=== PATIENT | female | born 1945 | race Caucasian/White ===

== ENCOUNTER 2017-02-18 19:33 | Emergency (ER) | payer MEDICARE ==
[~2017-02-18] VITALS: Ht 162.6 cm; Wt 59.6 kg
[2017-02-18 19:40] VITALS: BP 148/66; PULSE 72; RESP 18; TEMP 98.1; O2SAT 100
--- NOTE | 2017-02-18 20:08 | PD ---
HPI Chief Complaint: Fall Time Seen by Provider: 19:57 Travel History International Travel<30 days: No Contact w/Intl Traveler<30days: No Traveled to known affect area: No History of Present Illness HPI 71-year-old female with a mechanical fall, landing on her left shoulder and elbow that occurred about 1500 today. States that she meant to step up on a curb, lost her footing, and fell directly on her left shoulder and elbow. She has trouble with full range of motion of her shoulder and elbow because of pain. States that she hit her head on the concrete and has an abrasion on the right forehead. Denies loss of consciousness, dizziness, headache, neck pain, back pain or pain anywhere else. Says that the pain radiates up her forearm with movement. Her pain is moderate and increases with movement and decreases with rest. She is not taking any medication for this today. PFSH Past Medical History Cancer: Yes (breast) Diminished Hearing: No ?: Not Menopausal: Yes Past Surgical History Appendectomy: Yes Other Surgery: Yes (left breast lumpectomy) Family History Family Breast Cancer: Yes (personal breast CA) Social History Alcohol Use: Yes (occasional) Tobacco Use: No Substance Use: No Allergies-Medications (Allergen,Severity, Reaction): Coded Allergies: epinephrine (Verified Allergy, Severe, 02/18/17) Reported Meds & Prescriptions Reported Meds & Active Scripts Active Ibuprofen 600 Mg Tab 600 Mg PO Q8HR PRN 7 Days Review of Systems Except as stated in HPI: all other systems reviewed are Neg Physical Exam Narrative GENERAL: Well-developed well-nourished SKIN: Focused skin assessment warm/dry. HEAD: Normocephalic. Superficial abrasion to forehead without tenderness. EYES: Pupils equal and round. No scleral icterus. No injection or drainage. EOMI ENT: No nasal bleeding or discharge. Mucous membranes pink and moist. NECK: Trachea midline. No JVD. No tenderness to palpation CARDIOVASCULAR: Regular rate and rhythm. No murmur appreciated. RESPIRATORY: No accessory muscle use. Clear to auscultation. Breath sounds equal bilaterally. GASTROINTESTINAL: Abdomen soft, non-tender, nondistended. Hepatic and splenic margins not palpable. MUSCULOSKELETAL: No obvious deformities. No clubbing. No cyanosis. No edema. Lower forearm, wrist, hands, fingers nontender to palpation full range of motion. Skin intact. Left shoulder- limited range of motion secondary to pain, no deformities, crepitus or tenting of the skin. Left elbow- tenderness just distal to the elbow joint, no deformities, crepitus or tenting of the skin BACK: No CVA tenderness. No rash. No point tenderness on palpation of the spine. NEUROLOGICAL: Awake and alert. No obvious cranial nerve deficits. Motor grossly within normal limits. Normal speech. PSYCHIATRIC: Appropriate mood and affect; insight and judgment normal. Data Data Last Documented VS Vital Signs Date Time Temp Pulse Resp B/P (MAP) Pulse Ox O2 Delivery O2 Flow Rate FiO2 02/18/17 19:40 98.1 72 18 148/66 (93) 100 Orders Orders Shoulder, Complete (>2vws) (02/18/17 ) Elbow, Complete (4 Vws) (02/18/17 ) Ibuprofen (Motrin) (02/18/17 20:30) Splint Or Brace Apply/Monitor (02/18/17 21:01) Ed Discharge Order (02/18/17 21:01) [facility] Medical Decision Making Medical Screen Exam Complete: Yes Emergency Medical Condition: Yes Differential Diagnosis Left Elbow strain versus sprain versus fracture versus contusion Left Shoulder contusion versus sprain versus strain versus fracture Narrative Course 71-year-old female with a mechanical fall, landing on her left shoulder and elbow that occurred about 1500 today. States that she meant to step up on a curb, lost her footing, and fell directly on her left shoulder and elbow. She has trouble with full range of motion of her shoulder and elbow because of pain. States that she hit her head on the concrete and has an abrasion on the right forehead. Denies loss of consciousness, dizziness, headache, neck pain, back pain or pain anywhere else. Says that the pain radiates up her forearm with movement. Her pain is moderate and increases with movement and decreases with rest. She is not taking any medication for this today. Physical Exam demonstrates tenderness just distal to the elbow neurovascular intact, without crepitus or deformities. Shoulder nontender to palpation but difficulty with range of motion. No wrist pain, has full range of motion of wrist and fingers. Imaging study shoulder without acute process. Elbow: nondisplaced radial head fracture. Patient administered Motrin 600 mg with good pain relief in the ED. Sugar tong splint. Advised to return to the emergency Department if pain increases. Patient to follow-up with orthopedics within 3-5 days, primary care physician within 2 days. Diagnosis Primary Impression: Radial head fracture Qualified Codes: S52.125A - Nondisplaced fracture of head of left radius, initial encounter for closed fracture Additional Impression: Shoulder contusion Qualified Codes: S40.012A - Contusion of left shoulder, initial encounter Referrals: Orthopedist Additional Instructions: Use ice or heat for symptom relief. If symptoms persist or worsen, return to the emergency department. Follow up with your primary care physician within 2 days. Follow-up with orthopedist within 5 days. Use Motrin as prescribed Scripts Ibuprofen (Ibuprofen) 600 Mg Tab 600 MG PO Q8HR Y for PAIN for 7 Days, TAB 0 Refills Prov: Louie Ortiz MD 02/18/17 Disposition: 01 DISCHARGE HOME Condition: Stable Lyubov Barragan Feb 18, 2017 20:08
[2017-02-18] MEDS ORDERED: IBUPROFEN 800 MG TAB PO ONE (20:30)
--- NOTE | 2017-02-18 20:46 | RADRPT ---
EXAM DATE/TIME: 02/18/2017 20:16 [facility] COMPARISON: No previous studies available for comparison. INDICATIONS : Fall, complains of left shoulder pain. MEDICAL HISTORY : None. SURGICAL HISTORY : None. ENCOUNTER: Initial ACUITY: 1 day PAIN SCORE: 10/10 LOCATION: Left shoulder FINDINGS: Multiple view examination of the left shoulder demonstrates no evidence of fracture or dislocation. The glenohumeral and acromioclavicular joints are maintained. There are multiple surgical clips in th e left axilla. There is normal range of motion between internal and external rotation. Bony mineral ization is normal. CONCLUSION: Negative trauma study. Jeffrey Canseco MD on February 18, 2017 at 20:45 Board Certified Radiologist. This report was verified electronically.
--- NOTE | 2017-02-18 20:48 | RADRPT ---
EXAM DATE/TIME: 02/18/2017 20:16 [facility] COMPARISON: No previous studies available for comparison. INDICATIONS : Fall, complains of left elbow pain. MEDICAL HISTORY : None. SURGICAL HISTORY : None. ENCOUNTER: Initial ACUITY: 1 day PAIN SCORE: 10/10 LOCATION: Left elbow FINDINGS: Multiple views of the left elbow were obtained and demonstrate a subtle nondisplaced racture through the radial head. There is mild osteopenia and normal alignment. The distal humerus and olecranon are intact. No focal soft tissue abnormality is identified radiographically. There is evidence of a joint effusion. CONCLUSION: Nondisplaced fracture through the radial head with joint effusion. Jeffrey Canseco MD on February 18, 2017 at 20:45 Board Certified Radiologist. This report was verified electronically.
[2017-02-18] MEDS ORDERED: IBUP-232 PO (21:01)
[2017-02-18 21:36] VITALS: RESP 18
== END 2017-02-18 21:53 | disposition home or self-care (01) ==
LOC: PHEFT 19:33
DX: S52.125A Nondisplaced fracture of head of left radius, initial encounter for closed fracture (principal); S40.012A Contusion of left shoulder, initial encounter; W10.1XXA Fall (on)(from) sidewalk curb, initial encounter
CPT/HCPCS: 29125; 73030; 73080